=== PATIENT | male | born 1960 | race Two or more races ===

== ENCOUNTER → 2016-12-08 | Outpatient (CLI) | payer OTHER, MEDICARE ==
[~2016-12-08] MED LIST: AMLO1CAP12 PO; ASPI-482 PO; FENO160T PO; GLIM4TAB2 PO; HYDR-2762 PO; METF10002 PO; OMEP20TA PO; PRAV40TA2 PO; REGADENOSON 0.4 MG/5 ML DISP.SYRIN. IV ONE
--- NOTE | 2016-12-08 13:07 | RAD ---
APPROVED REPORT Test Type: Pharmacological Stress Nurse/Tech: Marylu Ibrahim R.N. Test Indications: chest pain, pre op clearance Cardiac History: htn,dm, cath in 2003-no intervention Medications: see ehr Medical History: see ehr Resting ECG: sb Resting Heart Rate: 60 bpm Resting Blood Pressure: 137/65mmHg Pretest Chest Pain: No chest pain Nurse/Tech Notes lungs cta, heart tones regular, good radial pulse Consent: The procedure was explained to the patient in lay terms. Informed consent was witnessed. Yasmany eout was entered into [employer]. History and Stress Test performed by Marylu Ibrahim R.N. Pharm. Details Pharmacologic stress testing was performed using 0.4mg per 5ml of regadenoson given intravenously ove r 7-10 seconds. Stress Symptoms chest pain during recovery 30 secs in to recovery 3/10, pain resolved in minute 4-0/10, described rosalba n as pressure Chest pain typical of angina occurred (Severity , min duration). POST EXERCISE Reason for Termination: Infusion complete Target HR: No Max HR: 101 bpm Max Blood Pressure: 147/67mmHg Chest Pain: Yes. see above Arrhythmia: No. INTERPRETATION Stress EKG Conclusion: The resting EKG showed a sinus rhythm and nonspecific ST segment changes. The stress EKG showed T-wave inversion inferiorly and in leads V3 through V6. Mildly abnormal baseline EKG with EKG changes with exertion that are suggestive of ischemia. Imaging Protocol IMAGE PROTOCOL: Rest Tc-99m/stress Tc-99m 1 day Rest: Stress: Viability: Radiopharm.Tc99m [id number] Sestamibi Dose10.1mCi 33mCi Duration 15min. 10min. Img Date 12/08/2016 12/08/2016 Inj-Img [id number]. 60min. Rest Admin Site:IV - Right AntecubitalAdministrator:RT Santos (R)(N) Stress Admin Site: IV - Right AntecubitalAdministrator: JUAN High STRESS DATA End Diast. Vol.150.0mlAv. Heart Rate72.0bpm End Syst. Vol.41.0mlCO Index BSA0.0L/min Myocardial Xusp537.0gEject. Cnbuhmqn36.0% Stress Rates Pk. Fill Rate3.18EDV/secLVtime Pk. Fill 124.66msec Pk. Empty Rate3.87ESV/secLVtime Pk. Ujggi480.25msec 10/14 Pk. Fill2.25EDV/sec Stress Scores Regional WT0.00Summed WT8.00 Regional WM0.00Summed WM1.00 LV Perfusion The stress scans showed mild inferior wall setting. The rest scan showed no significant defects. Borderline nuclear images suggestive but not diagnostic of inferior wall reversible ischemia. Wall Motion Normal left ventricular systolic function with an ejection fraction of greater than 70%. TID of 1.11. LV Perf. Quant 17 Seg. SSS1.00 17 Seg. SRS0.00 17 Seg. SDS1.00 Stress Defect Extent (% LAD)0.00Rest Defect Extent (% LAD)0.00Rev. Defect Extent (% LAD)0.00 Stress Defect Extent (% LCX) 0.00Rest Defect Extent (% LCX)0.00Rev. Defect Extent (% LCX)0.00 Stress Defect Extent (% RCA)0.00Rest Defect Extent (% RCA)0.00Rev. Defect Extent (% RCA)0.00 Stress Defect Extent (% ELMER)0.00Rest Defect Extent (% ELMER)0.00Rev. Defect Extent (% ELMER)0.00 Conclusion 1. Chest discomfort post infusion. 2. EKG changes suggestive but not diagnostic of ischemia. 3. Nuclear imaging is suggestive of an inferior wall reversible defect. 4. Normal left ventricular systolic function with an ejection fraction of greater than 70%. 5. Moderate risk Lexiscan nuclear stress test.
== END | disposition home or self-care (01) ==
LOC: NM 07:59
PROVIDERS: ATTEND Internal Medicine
DX: I25.119 Atherosclerotic heart disease of native coronary artery with unspecified angina pectoris (principal); R07.9 Chest pain, unspecified; Z82.49 Family history of ischemic heart disease and other diseases of the circulatory system; I10 Essential (primary) hypertension; E11.9 Type 2 diabetes mellitus without complications
CPT/HCPCS: 78452; 93017; 96374; 96375; 96376; A9500; J2785

== ENCOUNTER 2017-01-08 08:44 | Observation (INO) | payer BC, MEDICARE ==
[2017-01-08] VITALS (13 sets, daily range): BP systolic 120–147; BP diastolic 57–76
[~2017-01-08] VITALS: Ht 175.3 cm; Wt 99.8 kg
[~2017-01-08 08:44] MED LIST changes: +METF-620 PO; -METF10002 PO; -OMEP20TA PO; +OMEP20TA8 PO; -REGADENOSON 0.4 MG/5 ML DISP.SYRIN. IV ONE
[2017-01-08 09:30] LABS: HEMATOCRIT 34.6 % (39.0-53.0); HEMOGLOBIN 10.9 g/dL (13.0-17.5); RED BLOOD COUNT 4.68 x10^6/uL (4.30-5.70); WHITE BLOOD COUNT 5.1 x10^3/uL (4.0-11.0)
[2017-01-08 09:33] LABS: CALCIUM 8.8 mg/dL (8.5-10.1); CREATININE 0.8 mg/dL (0.7-1.3); POTASSIUM 4.1 mmol/L (3.5-5.1)
[2017-01-08 09:41] LABS: PROTHROMBIN TIME PATIENT 12.4 SEC (11.7-14.0)
[2017-01-08] MEDS ORDERED: GABA-586 PO (10:02)
[2017-01-08] MEDS ORDERED: ASPIRIN 325 MG TABLET PO ONE (10:15)
[2017-01-08] MEDS ORDERED: IOHEXOL 300 MG/ML 100ML VIAL. ONE (12:02)
[2017-01-08] MEDS ORDERED: LIDOCAINE 2% 20 ML VIAL. ONE (12:03)
[2017-01-08] MEDS ORDERED: MIDAZOLAM HCL/PF 2 MG/2 ML VIAL. ONE ×2 (12:27→12:34)
[2017-01-08] MEDS ORDERED: fentaNYL PF VIAL 100 MCG/2 ML VIAL ONE (12:27)
[2017-01-08] MEDS ORDERED: VERAPAMIL 5 MG/2 ML VIAL. ONE (12:27)
[2017-01-08] MEDS ORDERED: HEPARIN for IV BOLUS 10,000 UNIT/10 ML VIAL. ONE (12:27)
[2017-01-08] MEDS ORDERED: NITROGLYCERIN 200 MCG/2 ML SYRINGE FOR CATH/VASC LAB. ONE ×2 (12:27→13:53)
[2017-01-08] MEDS ORDERED: BIVALIRUDIN 250 MG VIAL. IV ONE ×2 (12:37→12:41)
[2017-01-08] MEDS ORDERED: VERAPAMIL 5 MG/2 ML VIAL. IART ONE (12:45)
[2017-01-08] MEDS ORDERED: MIDAZOLAM HCL/PF 2 MG/2 ML VIAL. IV ONE (12:45)
[2017-01-08] MEDS ORDERED: LIDOCAINE 2% 20 ML VIAL. IJ ONE (12:45)
[2017-01-08] MEDS ORDERED: IOHEXOL 300 MG/ML 100ML VIAL. IART ONE (12:45)
[2017-01-08] MEDS ORDERED: HEPARIN for IV BOLUS 10,000 UNIT/10 ML VIAL. IART ONE (12:45)
[2017-01-08] MEDS ORDERED: fentaNYL PF VIAL 100 MCG/2 ML VIAL IV ONE (12:45)
[2017-01-08] MEDS ORDERED: NITROGLYCERIN 200 MCG/2 ML SYRINGE FOR CATH/VASC LAB. IART ONE (12:45)
[2017-01-08] MEDS ORDERED: CANGRELOR TETRASODIUM 50 MG VIAL. IV ONE (12:46)
[2017-01-08] MEDS ORDERED: PHENYLEPHRINE in 0.9% NACL PF 1 MG/10 ML DISP.SYRIN. IV ONE (12:47)
[2017-01-08] MEDS ORDERED: ATROPINE 0.5 MG/5 ML DISP.SYRIN. ONE (12:47)
[2017-01-08] MEDS ORDERED: CANGRELOR TETRASODIUM 50 MG in IV NORMAL SALINE 250ML 250 ML IV PRN (12:55)
[2017-01-08] MEDS ORDERED: NITROGLYCERIN 200 MCG/2 ML SYRINGE FOR CATH/VASC LAB. ICAR ONE (13:00)
[2017-01-08] MEDS ORDERED: CONTRAST GIVEN MC PRN (13:00)
[2017-01-08] MEDS ORDERED: TICAGRELOR 90 MG TABLET. ONE (13:04)
[2017-01-08] MEDS ORDERED: TICAGRELOR 90 MG TABLET. PO ONE (13:15)
[2017-01-08] MEDS ORDERED: AMLO10TA2 PO (15:14)
[2017-01-08] MEDS ORDERED: BENA20TA2 PO (15:14)
[2017-01-08] MEDS ORDERED: OMEP20CA9 PO (15:15)
[2017-01-08] MEDS ORDERED: DEXTROSE 50% 25 GM / 50ML DISP.SYRIN. IV PRN (16:15)
[2017-01-08] MEDS ORDERED: oxyCODONE/APAP 5/325 1 TAB TABLET PO PRN (16:15)
[2017-01-08] MEDS: INSULIN ASPART 300 UNITS/3 ML INSULN.PEN SQ SCH (17:00)
--- NOTE | 2017-01-08 18:14 | CARD ---
APPROVED REPORT Procedure(s) performed: Right transradial approach Left Heart Catheterization PTCA with Stenting - RCA PTCA with Stenting - LAD iFR of the Lcx. HISTORY The patient is a 57 year-old male with a history of : diabetes mellitus with oral treatment, hyperten efe, family history of premature CAD. INDICATION The indication(s) include : positive stress test, unstable angina . CASE TECHNIQUE During this case, Fluoroscopy and low osmolar contrast were used for imaging. PROCEDURE NARRATIVE The patient was brought electively to the cardiac catheterization lab. A timeout was performed confi rming the patient's name, date of , procedure, and site of procedure. All necessary personnel w ere wearing the appropriate protective equipment and radiation monitor devices. After explaining the risks and benefits of the procedure and alternatives, informed consent was obtained. (See nursing no marleni for medications administered). The right wrist was sterilely prepped and draped in the usual fas hion. The right wrist was infiltrated with 1 mL of 2% lidocaine for subcutaneous anesthesia. A 6 Fr ench [employer] glide sheath was inserted into the right radial artery without difficulty. Right and lef t coronary angiography was performed using a 6Fr TIG 4.0 catheter. HEMODYNAMICS: LVEDP 20 mm Hg No gradient on LV to aortic pullback. LEFT VENTRICULOGRAM: EF 55% Anterobasal: Normal. Anterolateral: Normal Apical: Akinetic Diaphragmatic: Normal Posterobasal: Normal CORONARY ANGIOGRAPHY: LM is a large caliber vessel with normal angiographic appearance. LAD is a large caliber vessel with a distal/apical 80% stenosis. Ramus is a moderate caliber vessel with normal angiographic apeparance. LCx is a moderate caliber co-dominant vessel with a proximal to mid 40-50% stenosis. OM1 is a moderate caliber vessel with normal angiographic appearance. LPL1 is a moderate caliber vessel with normal angiographic appearance. RCA is a large caliber dominant vessel with a long mid to distal 90% stenosis. RPDA and RPL are moderate caliber vessels with normal angiographic appearance. INTERVENTIONAL TECHNIQUE: Bivalirudin and cangrelor was used for anticoagulation. Through a 6 [place] JR4 guide catheter a 0.014 inch [employer] run-through wire was used to cross the proximal and distal RCA lesions. Next, balloon an gioplasty was performed with a 3.0 x 20 mm balloon at 14 jessica. The lesion was then stented with a 3.5 x 38 mm drug-eluting stent (Xience) and then postdilated with a 4.0 x 12 mm noncompliant balloon. Pos t-PCI angiography revealed excellent stent expansion and LILI 3 flow without any proximal guide or di stal wire-related complications. Attention was then turned to the distal LAD lesion. A 6 [place] EBU 3.5 guide catheter was used to eng age the left main and the run-through wire was then placed in the distal LAD. Next, balloon angioplas ty was performed with a 2.5 x 12 mm balloon and this was subsequently stented with a 2.75 x 15 mm raffaele g-eluting stent.(Xience). Finally, a IFR wire was used to evaluate the significance of the circumflex stenosis and this was normal at 0.97. Left ventricular end diastolic pressure was obtained with a pigtail catheter and pullback was perfor med after left ventriculography. All catheter exchanges and advancements were performed over a guide wire. At case completion the right radial sheath was removed and a [employer] radial band was applied wi th 15 ml of air. The patient tolerated the procedure well and there were no immediate complications. The patient was given Ticagrelor at case completion. Conclusion 1. Three vessel coronary artery disease. 2. Normal LV systolic function. EF 65% 3. Successful PCI of the RCA with implantation of a 3.5/38 mm Xience LORENZO, post-dilated with a 4.0 mm stent. 4. Successful PCI of the distal LAD with implantation of a 2.75/15 mm LORENZO. 5. Negative iFR of the LCx stenosis. Recommendations ASA 81mg daily indefinitely Ticagrelor 90mg bid indefinitely if tolerated. High dose statin therapy Cardiac rehab.
[2017-01-08] MEDS: LISINOPRIL 20 MG TABLET PO SCH (18:16)
[2017-01-08] MEDS: amLODIPine BESYLATE 10 MG TABLET PO SCH (18:17)
[2017-01-08] MEDS ORDERED: ATORVASTATIN CALCIUM 40 MG TABLET. PO SCH (21:00)
[2017-01-08] MEDS: TICAGRELOR 90 MG TABLET. PO SCH (22:01)
[2017-01-09 03:00] VITALS: BP 119/61
[2017-01-09 06:38] LABS: CHOLESTEROL/HDL RATIO 4.6
[2017-01-09 07:00] VITALS: BP 119/61
[2017-01-09 08:00] VITALS: BP 126/62
[2017-01-09] MEDS ORDERED: ASPIRIN ENTERIC COATED 81 MG TABLET.DR. PO SCH (08:00)
[2017-01-09] MEDS: INSULIN ASPART 300 UNITS/3 ML INSULN.PEN SQ SCH (08:00)
[2017-01-09 09:50] VITALS: BP 126/62
[2017-01-09] MEDS: TICAGRELOR 90 MG TABLET. PO SCH (10:15)
[2017-01-09] MEDS: LISINOPRIL 20 MG TABLET PO SCH (10:15)
[2017-01-09] MEDS: amLODIPine BESYLATE 10 MG TABLET PO SCH (10:17)
[2017-01-09 11:00] VITALS: BP 108/51
[2017-01-09] MEDS ORDERED: TICA90TA PO (11:11)
[2017-01-09] MEDS ORDERED: ATOR40TA59 PO (11:11)
--- NOTE | 2017-01-09 12:04 | PDOC3 ---
[employer] M PRINCIPAL EMBEDDED SOFTWARE ENGINEER 01/09/17 1204: Discharge Summary Visit Information Date of Admission: Jan 08, 2017 Date of Discharge: Jan 09, 2017 Admitting Diagnosis Comment: 1. abnormal MPI 2. unstable angina 3. DM, II 4. HTN, benign essential 5. dyslipidemia Final Diagnosis Problems Medical Problems: (1) CAD (coronary artery disease), [place] coronary artery Status: Acute (2) DM circ dis type II Status: Acute 3. HTN, benign essential 4. dyslipidemia Brief Hospital Course Allergies Allergies Coded Allergies Type Severity Reaction Last Updated Verified Penicillins Allergy Intermediate RASH 06/15/14 Yes adhesive tape Allergy Intermediate 01/09/17 Yes clarithromycin Allergy Intermediate HIVES 06/15/14 Yes Vital Signs Vital Signs Date Time Temp Pulse Resp B/P Pulse Ox O2 Delivery O2 Flow Rate FiO2 01/09/17 11:00 98.3 67 18 108/51 Room Air 98.3 01/09/17 09:50 98 Lab Results Laboratory Tests Test 01/08/17 09:15 01/08/17 16:54 01/08/17 20:40 01/09/17 05:00 White Blood Count 5.1x10^3/uL (4.0-11.0) Red Blood Count 4.68x10^6/uL (4.30-5.70) Hemoglobin 10.9g/dL (13.0-17.5) Hematocrit 34.6% (39.0-53.0) Mean Corpuscular Volume 74fL (79-100) Mean Corpuscular Hemoglobin 23pg (25-35) Mean Corpuscular Hemoglobin Concent 32g/dL (31-37) Red Cell Distribution Width 17.0% (11.5-14.5) Platelet Count 178x10^3/uL (140-400) Prothrombin Time 12.4SEC (11.7-14.0) Prothromb Time International Ratio 1.0 (0.8-1.1) Activated Partial Thromboplast Time 28SEC (24-38) Sodium Level 145mmol/L (136-145) Potassium Level 4.1mmol/L (3.5-5.1) Chloride Level 106mmol/L (98-107) Carbon Dioxide Level 29mmol/L (21-32) Anion Gap 10 (6-14) Blood Urea Nitrogen 16mg/dL (8-26) Creatinine 0.8mg/dL (0.7-1.3) Estimated GFR (Cockcroft-Gault) 100.0 Glucose Level 119mg/dL (70-99) Calcium Level 8.8mg/dL (8.5-10.1) Glucose (Fingerstick) 152mg/dL (70-99) 102mg/dL (70-99) Triglycerides Level 122mg/dL (0-150) Cholesterol Level 142mg/dL (0-200) LDL Cholesterol, Calculated 87mg/dL (0-100) VLDL Cholesterol, Calculated 24mg/dL (0-40) HDL Cholesterol 31mg/dL (40-60) Cholesterol/HDL Ratio 4.6 Test 01/09/17 08:17 Glucose (Fingerstick) 125mg/dL (70-99) Laboratory Tests Test 01/08/17 16:54 01/08/17 20:40 01/09/17 05:00 01/09/17 08:17 Glucose (Fingerstick) 152mg/dL (70-99) 102mg/dL (70-99) 125mg/dL (70-99) Triglycerides Level 122mg/dL (0-150) Cholesterol Level 142mg/dL (0-200) LDL Cholesterol, Calculated 87mg/dL (0-100) VLDL Cholesterol, Calculated 24mg/dL (0-40) HDL Cholesterol 31mg/dL (40-60) Cholesterol/HDL Ratio 4.6 Brief Hospital Course Mr. Alfonso is a 57 old with an abnormal MPI demonstrating a reversible inferior perfusion defect ordered by his PCP and associated with intermittent sharp chest pain. Cardiac catheterization was recommended for further evaluation. He underwent catheter[facility] on 01/08/[facility] of a 3.5 X 38 mm Xience LORENZO to the RCA and 2.75 X 15 mm Xience LORENZO to the distal LAD with a negative FFR to the left circumflex. Monitored overnight without cardiac dysrhythmias. No further symptoms. Right radial site without erythema , edema or ecchymosis. Radial pulse 2+. Discharge on DAPT with Brilinta ( ticagrelor). Discharge Information Condition at Discharge: Stable Follow Up: Weeks (with cardiology as scheduled; PCP iin 3 - 5 days) Disposition/Orders: D/C to Home Scheduled Amlodipine Besylate (Amlodipine Besylate) 10 MG PO DAILY (Reported) Aspirin (Aspir 81) 2 TAB PO DAILY (Reported) Atorvastatin Calcium (Atorvastatin Calcium) 40 MG PO QHS Benazepril Hcl (Benazepril Hcl) 1 TAB PO DAILY (Reported) Gabapentin (Gabapentin) 300 MG PO BID (Reported) Metformin Hcl (Metformin Hcl) 1 TAB PO BID (Reported) Omeprazole (Omeprazole) 1 CAP PO QPM (Reported) Ticagrelor (Brilinta) 90 MG PO BID Discontinued Medications Amlodipine Besylate/Benazepril (Amlodipine-Benazepril 10-20 Mg) 1 CAP PO DAILY ( Reported) Fenofibrate (Fenofibrate) 1 TAB PO DAILY (Reported) Discontinued Reason: PCP change Hydrocodone Bit/Acetaminophen (Hydrocodone-Apap 7.5-325 ) 1 TAB PO QID ( Reported) Omeprazole (Omeprazole) 1 TAB PO DAILY (Reported) Pravastatin Sodium (Pravastatin Sodium) 1 TAB PO QHS (Reported) Discontinued Reason: PCP DC Patient Instructions Patient Instructions GENERAL INSTRUCTIONS: 1. Your dressing should be removed prior to leaving the hospital. 2. It is OK to shower the day after your procedure. 3. If you received stents, be sure to carry your stent information card with you in your wallet/purse at all times. 4. Call the office immediately at [phone] if you notice any fever or if there is redness, worsening tenderness/pain, increased bruising, or drainage from the puncture site. 5. Should you have bleeding from the site, lie down immediately & put pressure on the site. The pressure should be hard enough to stop the bleeding. Have the nearest person call 911. DO NOT try to drive to the ER with active bleeding. 6. If you notice a change in color, coolness to touch, or loss of feeling in the affected extremity, come to the emergency room. Please have someone drive you or call 911 if no one is available. DO NOT drive yourself. 7. If you normally take glucophage (metformin), please do not take this medicine for 48 hours following your procedure. 8. DO NOT STOP TAKING YOUR PLAVIX OR ASPIRIN UNLESS IT IS CLEARED BY A SADDLE STITCH OPERATOR OF YOUR PRIMARY SCHOOL PRINCIPAL AT OUR OFFICE. 9. QUIT SMOKING: the [place] [employer], [place], & [place] have cessation resources available on their websites 10. Please have someone available to drive you home from the hospital as you may be limited by sedation medications given during the procedure. Radial Artery (Wrist) access: 1. No pushing, pulling, lifting, typing, or anything that requires repetitive use/movement of the affected wrist for 3 days following your procedure. 2. OK to drive the day following your procedure. (This is because of effects of sedating medications.) Call the office at [phone] for any questions or concerns. HUA HOWARD MD 01/10/17 0257: Discharge Summary Brief Hospital Course Brief Hospital Course Late entry for 01/09/2017. Pt. seen and examined. Agree with above PSYCHIATRY INSTRUCTOR note. No acute events overnight. No CP R radial site is C/D/I Meds reviewed Will f/u in 4-6 weeks. Discharge Information Scheduled Amlodipine Besylate (Amlodipine Besylate) 10 MG PO DAILY (Reported) Aspirin (Aspir 81) 2 TAB PO DAILY (Reported) Atorvastatin Calcium (Atorvastatin Calcium) 40 MG PO QHS Benazepril Hcl (Benazepril Hcl) 1 TAB PO DAILY (Reported) Gabapentin (Gabapentin) 300 MG PO BID (Reported) Metformin Hcl (Metformin Hcl) 1 TAB PO BID (Reported) Omeprazole (Omeprazole) 1 CAP PO QPM (Reported) Ticagrelor (Brilinta) 90 MG PO BID Discontinued Medications Amlodipine Besylate/Benazepril (Amlodipine-Benazepril 10-20 Mg) 1 CAP PO DAILY ( Reported) Fenofibrate (Fenofibrate) 1 TAB PO DAILY (Reported) Discontinued Reason: PCP change Hydrocodone Bit/Acetaminophen (Hydrocodone-Apap 7.5-325 ) 1 TAB PO QID ( Reported) Omeprazole (Omeprazole) 1 TAB PO DAILY (Reported) Pravastatin Sodium (Pravastatin Sodium) 1 TAB PO QHS (Reported) Discontinued Reason: PCP [facility] PRINCIPAL EMBEDDED SOFTWARE ENGINEER Jan 09, 2017 12:04 HUA HOWARD MD Jan 10, 2017 02:57
== END 2017-01-09 13:00 | disposition home or self-care (01) ==
LOC: CCL 08:44 → CVICU 13:34 → INTOOBSV 13:34
PROVIDERS: ADMIT Internal Medicine Cardiovascular Disease; ATTEND Internal Medicine Cardiovascular Disease
DX: I25.119 Atherosclerotic heart disease of native coronary artery with unspecified angina pectoris (principal); E78.5 Hyperlipidemia, unspecified; I10 Essential (primary) hypertension; E11.9 Type 2 diabetes mellitus without complications; R94.39 Abnormal result of other cardiovascular function study; Z82.49 Family history of ischemic heart disease and other diseases of the circulatory system
CPT/HCPCS: 36415; 80048; 80061; 82962; 85027; 85610; 85730; 93458; 93571; 96365; 96372; C1725; C1769; C1874; C1887; C1892; C9460; C9600; G0378; G0379; J0583; J1815; J2250; J3010; J3490; J7050; Q9967; 92928; J7030

== ENCOUNTER 2017-12-03 11:18 | Emergency (ER) | payer BC ==
[2017-12-03 12:38] LABS: BILIRUBIN,URINE NEGATIVE (NEG); CLARITY,URINE CLOUDY; COLOR,URINE YELLOW; GLUCOSE,URINE 500 mg/dL (NEG); NITRITE,URINE NEGATIVE (NEG); PH,URINE 6.5; PROTEIN,URINE NEGATIVE (NEG-TRACE); UROBILINOGEN,URINE 0.2 mg/dL (0.2 mg/dL)
[2017-12-03 12:46] LABS: SQUAMOUS EPITHELIAL CELL,UR OCC /LPF
[2017-12-03 12:48] LABS: BACTERIA,URINE FEW /HPF (0-FEW); RBC,URINE OCC /HPF (0-2)
[2017-12-03 13:02] LABS: ADD MAN DIFF? NO
[2017-12-03 13:06] LABS: BASO % 1 % (0-3); EOS # 0.1 x10^3/uL (0.0-0.7); EOS % 2 % (0-3); HEMOGLOBIN 12.7 g/dL (13.0-17.5); LYMPH # 1.3 x10^3/uL (1.0-4.8); LYMPH % 28 % (24-48); MEAN CORPUSCULAR HEMOGLOBIN 27 pg (25-35); MEAN CORPUSCULAR HGB CONC 33 g/dL (31-37); MEAN CORPUSCULAR VOLUME 81 fL (79-100); MONO # 0.5 x10^3/uL (0.0-1.1); MONO % 10 % (0-9); NEUT # 2.6 x10^3uL (1.8-7.7); NEUT % 58 % (31-73); PLATELET COUNT 133 x10^3/uL (140-400); RED BLOOD COUNT 4.68 x10^6/uL (4.30-5.70); RED CELL DISTRIBUTION WIDTH 14.1 % (11.5-14.5); WHITE BLOOD COUNT 4.5 x10^3/uL (4.0-11.0)
[2017-12-03 13:15] LABS: ANION GAP 8 (6-14); BLOOD UREA NITROGEN 14 mg/dL (8-26); BUN/CREATININE RATIO 18 (6-20); CALCIUM 9.1 mg/dL (8.5-10.1); CARBON DIOXIDE 29 mmol/L (21-32); CHLORIDE 100 mmol/L (98-107); CREATININE 0.8 mg/dL (0.7-1.3); GLUCOSE 184 mg/dL (70-99); POTASSIUM 4.4 mmol/L (3.5-5.1); SODIUM 137 mmol/L (136-145)
[2017-12-03 13:21] LABS: ALBUMIN 3.9 g/dL (3.4-5.0); ALBUMIN/GLOBULIN RATIO 1.1 (1.0-1.7); ALK PHOS 65 U/L (46-116); ALT (SGPT) 66 U/L (16-63); AST (SGOT) 56 U/L (15-37); LIPASE 146 U/L (73-393); TOTAL BILIRUBIN 0.5 mg/dL (0.2-1.0); TOTAL PROTEIN 7.6 g/dL (6.4-8.2)
[2017-12-03 13:42] LABS: TROPONINI < 0.017 ng/mL (0.000-0.055)
[2017-12-03] MEDS: GADOBUTROL 10 MMOL/10 ML VIAL IV ×2 (16:05)
== END 2017-12-03 18:13 | disposition home or self-care (01) ==
LOC: ER 11:18
DX: M51.26 Other intervertebral disc displacement, lumbar region (principal); B02.9 Zoster without complications; R94.31 Abnormal electrocardiogram [ECG] [EKG]; E11.9 Type 2 diabetes mellitus without complications; I10 Essential (primary) hypertension; I25.10 Atherosclerotic heart disease of native coronary artery without angina pectoris; Z95.5 Presence of coronary angioplasty implant and graft; F43.10 Post-traumatic stress disorder, unspecified; Z79.02 Long term (current) use of antithrombotics/antiplatelets; Z88.0 Allergy status to penicillin; Z88.1 Allergy status to other antibiotic agents; Z88.8 Allergy status to other drugs, medicaments and biological substances
CPT/HCPCS: 36415; 70450; 72157; 72158; 80053; 81001; 83690; 84484; 85025; 93005; 96374; 99285-25; A9585

== ENCOUNTER → 2018-05-26 | Outpatient (CLI) | payer BC ==
[2017-12-03 16:54] VITALS: BP 136/75
[~2018-05-26] MED LIST changes: +AMLO10TA2 PO; +ATOR40TA59 PO; +BENA20TA4 PO; +GABA-586 PO; -METF-620 PO; +METF10003 PO; +OMEP20CA9 PO; +TICA90TA PO; +VALA1000 PO
--- NOTE | 2018-05-26 13:49 | RAD ---
MR#: [id number] Date of Study: 05/26/2018 Ordering Physician: HUA HOWARD, Referring Physician: STORMY NIEVES Tech: Porfirio Walker RT (R) (N) APPROVED REPORT Test Type: Exercise Stress Nurse/Tech: Jesica Hughes R.N. Test Indications: CAD, Stents Cardiac History: Family history, Hypertension, Diabetes, CAD, Stents Medications: See Electronic Medical Record Medical History: See Electronic Medical Record Resting ECG: NSR Resting Heart Rate: 61 bpm Resting Blood Pressure: 133/68mmHg Pretest Chest Pain: No chest pain Nurse/Tech Notes S1S2, lungs sound clear Consent: The procedure was explained to the patient in lay terms. Informed consent was witnessed. Yasmany eout was entered into [employer]. History and Stress Test performed by Jesica Hughes R.N. Stress Symptoms No chest pain or symptoms. POST EXERCISE Reason for Termination: Reached target heart rate Target HR: 138 Max HR: 149 bpm Exercise duration: 12 min min:sec, 4 Stage Max Blood Pressure: 171/73mmHg Blood Pressure response to exercise: Normal blood pressure response during stress. Chest Pain: No. Arrhythmia: No. ST Change: Yes. ST depression in V leads and II INTERPRETATION Stress EKG Conclusion: Baseline EKG showed sinus rhythm with lateral T wave inversions. Non diagnost ic changes at peak stress. No arrhythmias. Imaging Protocol IMAGE PROTOCOL: Rest Tc-99m/stress Tc-99m 1 day Rest: Stress: Viability: Radiopharm.Tc99m [id number] Sestamibi Dose12.4mCi 34.5mCi Duration 15min. 12min. Img Date 05/26/2018 05/26/2018 Inj-Img [id number]. 60min. Rest Admin Site:IV - Right AntecubitalAdministrator:JUAN High Stress Admin Site: IV - Right AntecubitalAdministrator: JUAN High STRESS DATA End Diast. Vol.114.0mlAv. Heart Rate73.0bpm End Syst. Vol.37.0mlCO Index BSA0.0L/min Myocardial Aavg457.0gEject. Fdjslcax37.0% Stress Rates Pk. Fill Rate2.97EDV/secLVtime Pk. Fill 154.57msec Pk. Empty Rate4.13ESV/secLVtime Pk. Ufvzf774.78msec 1/3 Pk. Fill1.69EDV/sec Stress Scores Regional WT0.00Summed WT5.00 Regional WM0.00Summed WM2.00 Study quality was good. Left Ventricular size was Normal at Rest and Stress. Lung uptake was Normal. Left Ventricular ejection fraction is 68%. The rest and stress images show normal perfusion, normal contraction and thickening. LV Perf. Quant 17 Seg. SSS1.00 17 Seg. SRS1.00 17 Seg. SDS1.00 Stress Defect Extent (% LAD)0.00Rest Defect Extent (% LAD)0.00Rev. Defect Extent (% LAD)0.00 Stress Defect Extent (% LCX) 0.00Rest Defect Extent (% LCX)0.00Rev. Defect Extent (% LCX)0.00 Stress Defect Extent (% RCA)0.00Rest Defect Extent (% RCA)0.00Rev. Defect Extent (% RCA)0.00 Stress Defect Extent (% ELMER)0.00Rest Defect Extent (% ELMER)0.00Rev. Defect Extent (% ELMER)0.00 Conclusion 1. Treadmill cardioisotope stress test did not show any evidence of ischemia or infarct. 2. Normal left ventricular systolic function with ejection fraction calculated at 68%. 3. Low risk for cardiac events. Signed by : Issac Moore, Electronically Approved : 05/26/2018 13:47:52
== END | disposition home or self-care (01) ==
LOC: NM 08:10
PROVIDERS: ATTEND Internal Medicine Cardiovascular Disease
DX: I25.10 Atherosclerotic heart disease of native coronary artery without angina pectoris (principal); I10 Essential (primary) hypertension; E11.9 Type 2 diabetes mellitus without complications; E78.5 Hyperlipidemia, unspecified; Z95.5 Presence of coronary angioplasty implant and graft
CPT/HCPCS: 78452; 93017; 96374; 96376; A9500

== ENCOUNTER 2018-11-24 14:50 | Emergency (ER) | payer BC ==
[~2018-11-24] VITALS: Ht 175.3 cm; Wt 102.1 kg
[~2018-11-24 14:50] MED LIST changes: -AMLO10TA2 PO; +AMLO10TA8 PO; -GABA-586 PO; +GABA300C18 PO; -HYDR-2762 PO; +HYDR-2765 PO; -METF10003 PO; +METF10007 PO; +OMEP20CA10 PO; -OMEP20CA9 PO
[2018-11-24] MEDS ORDERED: fentaNYL PF VIAL 100 MCG/2 ML VIAL IV ONE ×2 (15:30→18:15)
[2018-11-24] MEDS ORDERED: ONDANSETRON PF 4 MG/2 ML VIAL. IV ONE (15:30)
[2018-11-24] MEDS ORDERED: IV NORMAL SALINE 1000ML BAG 1,000 ML IV ONE (15:30)
--- NOTE | 2018-11-24 15:34 | PHYS DOC ---
Past Medical History Past Medical History: CAD, Depression, Diabetes-Type II, High Cholesterol, Hypertension, Other Additional Past Medical Histor: PTSD, DDD, CHRONIC BACK PAIN (ANTWON JOSEPH APRN) Past Surgical History: Other Additional Past Surgical Histo: cardiac stent, cardiac cath, back surgery, R rotator cuff (ANTWON JOSEPH APRN) Alcohol Use: Rarely Additional Information: SOCIALLY Drug Use: None (ANTWON JOSEPH APRN) Adult General Chief Complaint Chief Complaint: ABDOMINAL PAIN HPI HPI Patient is a 58 year old who presents to the emergency Department today with complaints of right upper quadrant abdominal pain and nausea for the last 3 days. Patient states he has felt nauseated but he denies any vomiting or diarrhea. Patient also denies any fever, chest pain, back pain, or constipation. He reports his last bowel movement was this morning and it was normal he denies any blood in his stools. Patient states that his urine has been darker than usual however he denies any dysuria, hematuria, or increased urinary frequency. Patient currently rates his pain as 6-8 out of 10 on the pain scale he states that nothing helps to relieve or aggravate the pain. (ANTWON JOSEPH APRN) Review of Systems Review of Systems Constitutional: Denies fever or chills [] HENT: Denies nasal congestion or sore throat [] Respiratory: Denies cough or shortness of breath [] Cardiovascular: No additional information not addressed in HPI [] GI: Denies vomiting, bloody stools or diarrhea; see history of present illness [ ] : Denies dysuria or hematuria; see history of present illness [] Musculoskeletal: Denies back pain or joint pain [] Integument: Denies rash or skin lesions [] Neurologic: Denies headache, focal weakness or sensory changes [] Endocrine: Denies polyuria or polydipsia [] (ANTWON JOSEPH APRN) Current Medications Current Medications Current Medications Medications (Trade) Dose Ordered Sig/Nirav Start Time Stop Time Status Last Admin Dose Admin Fentanyl Citrate (Fentanyl 2ml Vial) 50 mcg 1X ONCE 11/24/18 18:15 11/24/18 18:16 DC 11/24/18 18:19 50 MCG Ondansetron HCl (Zofran) 4 mg 1X ONCE 11/24/18 15:30 11/24/18 15:31 DC 11/24/18 15:45 4 MG Sodium Chloride 1,000 ml @ 1,000 mls/hr 1X ONCE 11/24/18 15:30 11/24/18 16:29 DC 11/24/18 15:45 1,000 MLS/HR (MAREN MURRELL MD) Allergies Allergies Allergies Coded Allergies Type Severity Reaction Last Updated Verified Penicillins Allergy Intermediate RASH 06/15/14 Yes adhesive tape Allergy Intermediate 01/09/17 Yes clarithromycin Allergy Intermediate HIVES 06/15/14 Yes (MAREN MURRELL MD) Physical Exam Physical Exam Constitutional: Well developed, well nourished, no acute distress, non-toxic appearance. [] HENT: Normocephalic, atraumatic, bilateral external ears normal, oropharynx moist, no oral exudates, nose normal. [] Eyes: PERRLA, conjunctiva normal, no discharge. [] Neck: Normal range of motion, no tenderness, supple, no stridor. [] Cardiovascular:Heart rate regular rhythm, no murmur [] Lungs & Thorax: Bilateral breath sounds clear to auscultation [] Abdomen: Bowel sounds normal, soft, no tenderness, no masses, no pulsatile masses. [] Skin: Warm, dry, no erythema, no rash. [] Back: No CVA tenderness. [] Extremities: No cyanosis, no clubbing, ROM intact, no edema. [] Neurologic: Alert and oriented X 3, normal motor function, normal sensory function, no focal deficits noted. [] Psychologic: Affect normal, judgement normal, mood normal. [] (ANTWON JOSEPH APRN) Current Patient Data Vital Signs Vital Signs Date Time Temp Pulse Resp B/P (MAP) Pulse Ox O2 Delivery O2 Flow Rate FiO2 11/24/18 18:30 72 13 152/66 (94) 96 Room Air 11/24/18 14:57 98.4 98.4 (MAREN MURRELL MD) Lab Values Laboratory Tests Test 11/24/18 15:33 White Blood Count 6.3 x10^3/uL (4.0-11.0) Red Blood Count 4.91 x10^6/uL (4.30-5.70) Hemoglobin 12.9 g/dL (13.0-17.5) L Hematocrit 39.9 % (39.0-53.0) Mean Corpuscular Volume 81 fL (79-100) Mean Corpuscular Hemoglobin 26 pg (25-35) Mean Corpuscular Hemoglobin Concent 32 g/dL (31-37) Red Cell Distribution Width 14.7 % (11.5-14.5) H Platelet Count 128 x10^3/uL (140-400) L Neutrophils (%) (Auto) 58 % (31-73) Lymphocytes (%) (Auto) 32 % (24-48) Monocytes (%) (Auto) 8 % (0-9) Eosinophils (%) (Auto) 2 % (0-3) Basophils (%) (Auto) 1 % (0-3) Neutrophils # (Auto) 3.7 x10^3uL (1.8-7.7) Lymphocytes # (Auto) 2.0 x10^3/uL (1.0-4.8) Monocytes # (Auto) 0.5 x10^3/uL (0.0-1.1) Eosinophils # (Auto) 0.1 x10^3/uL (0.0-0.7) Basophils # (Auto) 0.0 x10^3/uL (0.0-0.2) Urine Color Yellow Urine Clarity Clear Urine pH 5.5 Urine Specific [place] >=1.030 Urine Protein Negative mg/dL (NEG-TRACE) Urine Glucose (UA) >=1000 mg/dL (NEG) Urine Ketones (Stick) Negative mg/dL (NEG) Urine Blood Negative (NEG) Urine Nitrite Negative (NEG) Urine Bilirubin Negative (NEG) Urine Urobilinogen Dipstick 0.2 mg/dL (0.2 mg/dL) Urine Leukocyte Esterase Negative (NEG) Urine RBC 0 /HPF (0-2) Urine WBC Occ /HPF (0-4) Urine Squamous Epithelial Cells None /LPF Urine Bacteria 0 /HPF (0-FEW) Sodium Level 139 mmol/L (136-145) Potassium Level 3.8 mmol/L (3.5-5.1) Chloride Level 102 mmol/L (98-107) Carbon Dioxide Level 27 mmol/L (21-32) Anion Gap 10 (6-14) Blood Urea Nitrogen 16 mg/dL (8-26) Creatinine 0.8 mg/dL (0.7-1.3) Estimated GFR (Cockcroft-Gault) 99.6 BUN/Creatinine Ratio 20 (6-20) Glucose Level 257 mg/dL (70-99) H Calcium Level 9.2 mg/dL (8.5-10.1) Total Bilirubin 0.4 mg/dL (0.2-1.0) Aspartate Amino Transferase (AST) 29 U/L (15-37) Alanine Aminotransferase (ALT) 41 U/L (16-63) Alkaline Phosphatase 71 U/L (46-116) Total Protein 7.7 g/dL (6.4-8.2) Albumin 4.0 g/dL (3.4-5.0) Albumin/Globulin Ratio 1.1 (1.0-1.7) Lipase 122 U/L (73-393) Laboratory Tests 11/24/18 15:33 Laboratory Tests 11/24/18 15:33 (MAREN MURRELL MD) Lab Values Laboratory Tests Test 11/24/18 15:33 White Blood Count 6.3 x10^3/uL (4.0-11.0) Red Blood Count 4.91 x10^6/uL (4.30-5.70) Hemoglobin 12.9 g/dL (13.0-17.5) L Hematocrit 39.9 % (39.0-53.0) Mean Corpuscular Volume 81 fL (79-100) Mean Corpuscular Hemoglobin 26 pg (25-35) Mean Corpuscular Hemoglobin Concent 32 g/dL (31-37) Red Cell Distribution Width 14.7 % (11.5-14.5) H Platelet Count 128 x10^3/uL (140-400) L Neutrophils (%) (Auto) 58 % (31-73) Lymphocytes (%) (Auto) 32 % (24-48) Monocytes (%) (Auto) 8 % (0-9) Eosinophils (%) (Auto) 2 % (0-3) Basophils (%) (Auto) 1 % (0-3) Neutrophils # (Auto) 3.7 x10^3uL (1.8-7.7) Lymphocytes # (Auto) 2.0 x10^3/uL (1.0-4.8) Monocytes # (Auto) 0.5 x10^3/uL (0.0-1.1) Eosinophils # (Auto) 0.1 x10^3/uL (0.0-0.7) Basophils # (Auto) 0.0 x10^3/uL (0.0-0.2) Urine Color Yellow Urine Clarity Clear Urine pH 5.5 Urine Specific [place] >=1.030 Urine Protein Negative mg/dL (NEG-TRACE) Urine Glucose (UA) >=1000 mg/dL (NEG) Urine Ketones (Stick) Negative mg/dL (NEG) Urine Blood Negative (NEG) Urine Nitrite Negative (NEG) Urine Bilirubin Negative (NEG) Urine Urobilinogen Dipstick 0.2 mg/dL (0.2 mg/dL) Urine Leukocyte Esterase Negative (NEG) Urine RBC 0 /HPF (0-2) Urine WBC Occ /HPF (0-4) Urine Squamous Epithelial Cells None /LPF Urine Bacteria 0 /HPF (0-FEW) Sodium Level 139 mmol/L (136-145) Potassium Level 3.8 mmol/L (3.5-5.1) Chloride Level 102 mmol/L (98-107) Carbon Dioxide Level 27 mmol/L (21-32) Anion Gap 10 (6-14) Blood Urea Nitrogen 16 mg/dL (8-26) Creatinine 0.8 mg/dL (0.7-1.3) Estimated GFR (Cockcroft-Gault) 99.6 BUN/Creatinine Ratio 20 (6-20) Glucose Level 257 mg/dL (70-99) H Calcium Level 9.2 mg/dL (8.5-10.1) Total Bilirubin 0.4 mg/dL (0.2-1.0) Aspartate Amino Transferase (AST) 29 U/L (15-37) Alanine Aminotransferase (ALT) 41 U/L (16-63) Alkaline Phosphatase 71 U/L (46-116) Total Protein 7.7 g/dL (6.4-8.2) Albumin 4.0 g/dL (3.4-5.0) Albumin/Globulin Ratio 1.1 (1.0-1.7) Lipase 122 U/L (73-393) Laboratory Tests 11/24/18 15:33 Laboratory Tests 11/24/18 15:33 (ANTWON JOSEPH APRN) EKG EKG [] (ANTWON JOSEPH APRN) Radiology/Procedures Radiology/Procedures PROCEDURE: ABDOMEN LTD Limited abdomen ultrasound study Clinical indications: Right upper quadrant abdominal pain for 3 days. FINDINGS: The pancreas is obscured by overlying bowel gas. No focal aneurysmal dilatation of the abdominal aorta is evident. There is diffuse attenuation of sound throughout the liver which may be seen with fatty infiltration of the liver. This decreases the sensitivity of sonography to detect focal hepatic lesions. No focal hepatic mass is seen otherwise. The liver measures 16.9 cm in length which is normal. No gallstones are seen within the gallbladder. Biliary sludge is seen within the gallbladder. No gallbladder wall thickening or gallbladder distention is evident. The extra hepatic bile duct measures 4.0 mm in caliber which is normal. The length of the right kidney is 13.1 cm. No hydronephrosis or renal mass or perinephric fluid collection is seen on this side. IMPRESSION: Biliary sludge within the gallbladder. Fatty infiltration of the liver.[] PROCEDURE: CHEST PA & LATERAL CHEST PA LATERAL History: right lower rib pain Comparison: None The heart size is not enlarged. No pneumothorax. No evidence of a pleural effusion. Note that the right lateral lung base is not entirely included. No consolidating infiltrate. Mild degenerative spurring of the spine. IMPRESSION: No evidence of consolidating infiltrate. (ANTWON JOSEPH BOX SORTER) Course & Med Decision Making Course & Med Decision Making Pertinent Labs and Imaging studies reviewed. (See chart for details) Dx: RUQ abd pain, nausea DDx: cholecystitis, gallstones, pneumonia, PE US of RUQ and CXR negative for any acute findings. Labs not concerning for acute infection or dehydration. Pt was given 1L NS, 4 mg of zofran and 2 doses of 50 mcg of Fentanyl IV, reports improvement in sx. Prescription written for zofran, clear liquid diet x24 hours then bland diet and advance as tolerated. Follow up with PCP if sx persist, return to ER if sx worsen. Patient verbalized an understanding of home care, medications, follow-up, and return to ED instructions and was in agreement with the plan of care. [] (ANTWON JOSEPH APRN) Course & Med Decision Making Staff Physician Addendum: I was working in the ER during the course of this patient's visit. I was available for consultation as needed, but I was not directly involved in the care of this patient. (MAREN MURRELL MD) Dragon Disclaimer Dragon Disclaimer This electronic medical record was generated, in whole or in part, using a voice recognition dictation system. (ANTWON JOSEPH APRN) Departure Departure Impression: Primary Impression: Right upper quadrant abdominal pain Additional Impressions: Nausea Hyperglycemia due to type 2 diabetes mellitus Disposition: HOME, SELF-CARE Condition: STABLE Referrals: VALERIE ANGEL (PCP) Patient Instructions: Abdominal Pain (Nonspecific), Clear Liquid Diet, Easy-to- Read, Nausea, Adult, [id number] Additional Instructions: Fill prescriptions and use them as directed. Recommend clear fluids for the next 24 hours. Then you may advance to bland foods such as bananas, rice, applesauce, and dry toast. Follow-up with your primary care doctor in the next 1 -2 days. Return to the emergency room if your symptoms worsen. Scripts Ondansetron (ONDANSETRON ODT) 4 Mg Tab.rapdis 1 TAB PO PRN Q6-8HRS PRN for NAUSEA, #16 TAB 0 Refills Prov: ANTWON JOSEPH APRN 11/24/18 Problem Qualifiers Additional Impressions: Hyperglycemia due to type 2 diabetes mellitus Diabetes mellitus terminologist insulin use: unspecified jail insulin use status Qualified Codes: E11.65 - Type 2 diabetes mellitus with hyperglycemia ANTWON JOSEPH APRN Nov 24, 2018 15:34 MAREN MURRELL MD Nov 25, 2018 11:36
[2018-11-24 15:45] LABS: BASO % 1 % (0-3); EOS # 0.1 x10^3/uL (0.0-0.7); EOS % 2 % (0-3); HEMATOCRIT 39.9 % (39.0-53.0); HEMOGLOBIN 12.9 g/dL (13.0-17.5); LYMPH % 32 % (24-48); MEAN CORPUSCULAR HEMOGLOBIN 26 pg (25-35); MEAN CORPUSCULAR HGB CONC 32 g/dL (31-37); MEAN CORPUSCULAR VOLUME 81 fL (79-100); MONO # 0.5 x10^3/uL (0.0-1.1); MONO % 8 % (0-9); NEUT # 3.7 x10^3uL (1.8-7.7); NEUT % 58 % (31-73); PLATELET COUNT 128 x10^3/uL (140-400); RED BLOOD COUNT 4.91 x10^6/uL (4.30-5.70); RED CELL DISTRIBUTION WIDTH 14.7 % (11.5-14.5); WHITE BLOOD COUNT 6.3 x10^3/uL (4.0-11.0)
[2018-11-24 15:53] LABS: BILIRUBIN,URINE NEGATIVE (NEG); CLARITY,URINE CLEAR; COLOR,URINE YELLOW; NITRITE,URINE NEGATIVE (NEG); PH,URINE 5.5; PROTEIN,URINE NEGATIVE (NEG-TRACE); UROBILINOGEN,URINE 0.2 mg/dL (0.2 mg/dL)
[2018-11-24 15:57] LABS: CALCIUM 9.2 mg/dL (8.5-10.1); CREATININE 0.8 mg/dL (0.7-1.3); GFR 99.6; POTASSIUM 3.8 mmol/L (3.5-5.1)
[2018-11-24 16:01] LABS: ALBUMIN/GLOBULIN RATIO 1.1 (1.0-1.7); TOTAL BILIRUBIN 0.4 mg/dL (0.2-1.0); TOTAL PROTEIN 7.7 g/dL (6.4-8.2)
[2018-11-24 16:14] LABS: RBC,URINE 0 /HPF (0-2)
[2018-11-24 16:15] LABS: BACTERIA,URINE 0 /HPF (0-FEW); WBC,URINE OCC /HPF (0-4)
--- NOTE | 2018-11-24 17:22 | RAD ---
Limited abdomen ultrasound study Clinical indications: Right upper quadrant abdominal pain for 3 days. FINDINGS: The pancreas is obscured by overlying bowel gas. No focal aneurysmal dilatation of the abdominal aorta is evident. There is diffuse attenuation of sound throughout the liver which may be seen with fatty infiltration of the liver. This decreases the sensitivity of sonography to detect focal hepatic lesions. No focal hepatic mass is seen otherwise. The liver measures 16.9 cm in length which is normal. No gallstones are seen within the gallbladder. Biliary sludge is seen within the gallbladder. No gallbladder wall thickening or gallbladder distention is evident. The extra hepatic bile duct measures 4.0 mm in caliber which is normal. The length of the right kidney is 13.1 cm. No hydronephrosis or renal mass or perinephric fluid collection is seen on this side. IMPRESSION: Biliary sludge within the gallbladder. Fatty infiltration of the liver. Electronically signed by: John Kenney MD (11/24/2018 5:18 PM) [facility]
--- NOTE | 2018-11-24 17:24 | RAD ---
CHEST PA LATERAL History: right lower rib pain Comparison: None The heart size is not enlarged. No pneumothorax. No evidence of a pleural effusion. Note that the right lateral lung base is not entirely included. No consolidating infiltrate. Mild degenerative spurring of the spine. IMPRESSION: No evidence of consolidating infiltrate. Electronically signed by: Nikhil Winkler MD (11/24/2018 5:20 PM) [facility]
[2018-11-24] MEDS ORDERED: ONDA4TAB12 PO (18:08)
[2018-11-24 18:30] VITALS: BP 152/66
== END 2018-11-24 18:47 | disposition home or self-care (01) ==
LOC: ER 14:50
DX: R10.11 Right upper quadrant pain (principal); G89.29 Other chronic pain; R11.0 Nausea; E11.65 Type 2 diabetes mellitus with hyperglycemia; E78.00 Pure hypercholesterolemia, unspecified; I10 Essential (primary) hypertension; I25.10 Atherosclerotic heart disease of native coronary artery without angina pectoris; E03.9 Hypothyroidism, unspecified; Z95.5 Presence of coronary angioplasty implant and graft; Z88.1 Allergy status to other antibiotic agents; Z88.0 Allergy status to penicillin; Z88.8 Allergy status to other drugs, medicaments and biological substances
CPT/HCPCS: 36415; 71046; 76705; 80053; 81001; 83690; 85025; 96361; 96374; 96375; 96376; 99284; J2405; J3010; J7030

== ENCOUNTER → 2019-05-30 | Outpatient (CLI) | payer BC ==
[~2019-05-30] MED LIST changes: -AMLO1CAP12 PO; +AMLO1CAP13 PO; +ONDA4TAB12 PO
--- NOTE | 2019-05-30 11:50 | RAD ---
MR#: [id number] Date of Study: 05/30/2019 Ordering Physician: HUA HOWARD, Referring Physician: STORMY NIEVES Tech: RT Roberto (R) (N) APPROVED REPORT Test Type: Exercise Stress Nurse/Tech: Marylu Ibrahim R.N. Test Indications: cad Cardiac History: stents x 2 2014, htn, dm Medications: see ehr Medical History: see ehr Resting ECG: SR, inverted Ts noted in mult leads Resting Heart Rate: 60 bpm Resting Blood Pressure: 134/72mmHg Pretest Chest Pain: No chest pain Nurse/Tech Notes lungs cta, heart tones regular Consent: The procedure was explained to the patient in lay terms. Informed consent was witnessed. Yasmany eout was entered into [employer]. History and Stress Test performed by RT Roberto (R) (N) Stress Symptoms No chest pain or symptoms.Dyspnea POST EXERCISE Reason for Termination: Reached target heart rate Target HR: Yes Max HR: 149 bpm 92% of Maximum Predicted HR: 162 bpm Exercise duration: 11:52 min:sec, 4 Stage Exercise capacity: 13.4METs Max Blood Pressure: 171/73mmHg Blood Pressure response to exercise: Normal blood pressure response during stress. Heart Rate response to exercise: normal Chest Pain: No. Arrhythmia: No. ST Change: Yes. significan ST depression noted in mult leads, improved during recovery but did not re cover to baseline, no CP, dyspnea INTERPRETATION Stress EKG Conclusion: Baseline EKG showed sinus rhythm. ST depressions inferolateral leads at peak s tress suspicious for ischemia. No arrhythmias. Imaging Protocol IMAGE PROTOCOL: Rest Tc-99m/stress Tc-99m 1 day Rest: Stress: Viability: Radiopharm.Tc99m [id number] Sestamibi [id number] 33mCi Duration 13min. 13min. Img Date 05/30/2019 05/30/2019 Inj-Img [id number]. 60min. STRESS DATA End Diast. Vol.112.0mlLVEDV index BSA52.0ml End Syst. Vol.34.0mlLVESV index BSA16.0ml Myocardial Jwhh238.0gEject. Cimvdctf70.0% Stress Scores Regional WT1.00Summed WT20.00 Regional WM0.00Summed WM2.00 Study quality was good. Left Ventricular size was Normal at Rest and Stress. Lung uptake was . Left Ventricular ejection fraction is 70%. The rest and stress images show normal perfusion, normal contraction and thickening. LV Perf. Quant 17 Seg. SSS4.00 17 Seg. SRS0.00 17 Seg. SDS4.00 Stress Defect Extent (% LAD)0.00Rest Defect Extent (% LAD)0.00Rev. Defect Extent (% LAD)0.00 Stress Defect Extent (% LCX) 23.80Rest Defect Extent (% LCX)0.00Rev. Defect Extent (% LCX)23.80 Stress Defect Extent (% RCA)0.00Rest Defect Extent (% RCA)0.00Rev. Defect Extent (% RCA)0.00 Stress Defect Extent (% ELMER)4.10Rest Defect Extent (% ELMER)0.00Rev. Defect Extent (% ELMER)4.10 Conclusion 1. Treadmill exercise cardioisotope stress test did not show any evidence of ischemia or infarct. 2. Normal left ventricular systolic function with ejection fraction calculated at 70%. 3. Patient had good activity tolerance. Low risk for cardiac events. Signed by : Issac Moore Electronically Approved : 05/30/2019 11:49:43
== END | disposition home or self-care (01) ==
LOC: NM 07:48
PROVIDERS: ATTEND Internal Medicine Cardiovascular Disease
DX: I25.10 Atherosclerotic heart disease of native coronary artery without angina pectoris (principal); I10 Essential (primary) hypertension; E11.9 Type 2 diabetes mellitus without complications; Z88.8 Allergy status to other drugs, medicaments and biological substances; Z88.0 Allergy status to penicillin; Z79.01 Long term (current) use of anticoagulants; Z86.73 Personal history of transient ischemic attack (TIA), and cerebral infarction without residual deficits
CPT/HCPCS: 78452; 93017; A9500; 96376

== ENCOUNTER → 2019-11-04 | Outpatient (CLI) | payer BC, OTHER ==
[~2019-11-04] MED LIST changes: -GLIM4TAB2 PO; +GLIM4TAB8 PO; -OMEP20CA10 PO; +OMEP20CA16 PO
--- NOTE | 2019-11-07 19:57 | EEG ---
DATE OF SERVICE: 11/04/2019 DATE OF EE11/04/2019 EEG NUMBER: [id number]. OBJECTIVE: This is a 59-year-old male patient with history of memory loss. EEG is requested to evaluate cerebral activity and help rule out seizure. METHODS: Twenty electrodes were applied according to the international 10-20 electrode placement system. EKG monitoring, hyperventilation, intermittent photic stimulation, monopolar and bipolar montages are routinely utilized. The record was obtained on a digital system with video monitoring. FINDINGS: 1. Background: The patient was recorded in the awake, drowsy, and sleep states. The overall background amplitude is 5-15 microvolts. A posterior dominant rhythm of 8-9 Hz is observed. 2. Abnormalities: No specific epileptiform discharge or electrographic seizure is seen. No focal or diffuse slowing. 3. Activation: Hyperventilation was performed with good efforts and normal response. Intermittent photic stimulation was performed with photic driving. IMPRESSION: This EEG is a normal study for the awake, drowsy, and sleep states. No focal, lateralizing, specific epileptiform discharge, or electrographic seizure is seen. EFFIE ARRIAGA MD DR: VIVIANA/joann JOB#: [id number] / [id number] MARQUISE
== END | disposition home or self-care (01) ==
LOC: RT 15:19
PROVIDERS: ATTEND Psychiatry & Neurology Neurology
DX: R41.3 Other amnesia (principal)
CPT/HCPCS: 95816

== ENCOUNTER → 2019-12-19 | Outpatient (CLI) | payer OTHER ==
[~2019-12-19] MED LIST changes: +CLOP75TA PO; +GADOTERATE 5 MMOL/10ML VIAL. IVP ONE; +GLIP5TAB10 PO; +LIRA0.6P2 SQ; +PANT20TA2 PO; -VALA1000 PO; +VALA10008 PO
--- NOTE | 2019-12-19 11:21 | KCIC ---
EXAM: Brain MRI with and without contrast. HISTORY: Memory loss. Headache. Facial pain. TECHNIQUE: Multiplanar, multisequence magnetic resonance imaging of the brain was performed prior to and following the administration of intravenous contrast. COMPARISON: None. FINDINGS: There is no restricted diffusion to suggest acute or subacute infarction. There is no susceptibility effect to suggest hemorrhage. There is no mass effect or midline shift. There is no hydrocephalus. There are few tiny foci of signal change within the cerebral white matter. There is a suspected incidental developmental venous anomaly within the left temporal lobe and external capsule. There is a hypoplastic distal left vertebral artery, a normal variant. There are normal flow voids within the cerebral vessels. The orbits are unremarkable. There are right greater than left maxillary sinus mucous retention cysts. The mastoid air cells are unremarkable. No calvarial lesion is seen. IMPRESSION: 1. No acute intracranial finding. 2. Tiny foci of signal change within the cerebral white matter, most commonly due to chronic small vessel disease in patients of this age. Electronically signed by: Sandra Kearney MD (12/19/2019 11:18 AM) [id number]
== END ==
LOC: KCIC MRI 09:26
PROVIDERS: ATTEND Psychiatry & Neurology Neurology
DX: I73.89 Other specified peripheral vascular diseases (principal); R68.84 Jaw pain; R41.3 Other amnesia
CPT/HCPCS: 70553; 82565; A9575

== ENCOUNTER → 2019-12-23 | Outpatient (CLI) | payer OTHER ==
[~2019-12-23] MED LIST changes: -GADOTERATE 5 MMOL/10ML VIAL. IVP ONE
[2019-12-23 10:33] LABS: ALBUMIN 4.1 g/dL (3.4-5.0); ALBUMIN/GLOBULIN RATIO 1.2 (1.0-1.7); GFR 76.7; POTASSIUM 3.9 mmol/L (3.5-5.1); TOTAL BILIRUBIN 0.5 mg/dL (0.2-1.0); TOTAL PROTEIN 7.4 g/dL (6.4-8.2)
== END | disposition home or self-care (01) ==
LOC: LAB 09:31
PROVIDERS: ATTEND Psychiatry & Neurology Neurology
DX: R41.3 Other amnesia (principal)
CPT/HCPCS: 36415; 80053

== ENCOUNTER → 2021-11-08 | Outpatient (CLI) | payer BC ==
[~2021-11-08] MED LIST changes: +AMLO-187 PO; -AMLO10TA8 PO; -BENA20TA4 PO; +BENA20TA84 PO
--- NOTE | 2021-11-11 09:36 | RAD ---
MR#: [id number] Date of Study: 11/08/2021 Ordering Physician: HUA MUNOZ, Referring Physician: STORMY NIEVES Tech: RT Sam Mejia) (N) APPROVED REPORT Test Type: Exercise Stress Nurse/Tech: Yudy Booth RN Test Indications: CAD Cardiac History: Hypertension, Diabetes,2 stents 2017 Medications: See Electronic Medical Record Medical History: See Electronic Medical Record Resting ECG: SR with BBB Resting Heart Rate: 66 bpm Resting Blood Pressure: 140/72mmHg Pretest Chest Pain: No chest pain Nurse/Tech Notes S1,S2 and lungs clear to auscultation. Slight tightness in chest since having COVID in June. Consent: The procedure was explained to the patient in lay terms. Informed consent was witnessed. Yasmany eout was entered into [employer]. History and Stress Test performed by RT Santos (R) (N) Stress Symptoms No chest pain or symptoms. POST EXERCISE Reason for Termination: Reached target heart rate, Fatigue Target HR: Yes Max HR: 163 bpm 119% of Maximum Predicted HR: 136 bpm Exercise duration: 10:40 min:sec, 4 Stage Exercise capacity: 13.4METs Max Blood Pressure: 159/71mmHg Blood Pressure response to exercise: Normal blood pressure response during stress. Heart Rate response to exercise: WNL Chest Pain: No. Arrhythmia: No. ST Change: Yes. Slightly depressed ST segments during exercise (II,v3-v6) that resolved by end of [place] dy INTERPRETATION Stress EKG Conclusion: Mild lateral wall 1.[address] segment depression suggestive but not diagnostic o f ischemia. Imaging Protocol IMAGE PROTOCOL: Rest Tc-99m/stress Tc-99m 1 day Rest: Stress: Viability: Radiopharm.Tc99m EtcczdyyzFq48v Sestamibi Dose10.2mCi 32.2mCi Duration 15min. 15min. Img Date 11/08/2021 11/08/2021 Inj-Img [id number]. 60min. Rest Admin Site:IV - Right AntecubitalAdministrator:RT Sam Graham)(N) Stress Admin Site: IV - Right AntecubitalAdministrator: Sandra Peterson, RT (R)(N) STRESS DATA End Diast. Vol.78.0mlLVEDV index BSA37.0ml End Syst. Vol.19.0mlLVESV index BSA9.0ml Myocardial Lscq486.0gEject. Yadvrywa44.0% Stress Scores Regional WT1.00Summed WT9.00 Regional WM0.00Summed WM0.00 The rest and stress images show normal perfusion, normal contraction and thickening. LV Perf. Quant 17 Seg. SSS1.00 17 Seg. SRS3.00 17 Seg. SDS0.00 Stress Defect Extent (% LAD)0.00Rest Defect Extent (% LAD)0.00Rev. Defect Extent (% LAD)0.00 Stress Defect Extent (% LCX) 5.00Rest Defect Extent (% LCX)23.80Rev. Defect Extent (% LCX)0.00 Stress Defect Extent (% RCA)0.00Rest Defect Extent (% RCA)6.70Rev. Defect Extent (% RCA)0.00 Stress Defect Extent (% ELMER)0.90Rest Defect Extent (% ELMER)5.40Rev. Defect Extent (% ELMER)0.00 Other Information Quality:Average Risk Assessment: Low Risk Conclusion 1. Mildly abnormal EKG with lateral 1.5mm ST segment depression. 2. Normal perfusion at stress/rest. 3. Normal EF at > 60% 4. Low risk study. Signed by : Hua Munoz, Electronically Approved : 11/11/2021 09:35:47
== END ==
LOC: NM 08:15
PROVIDERS: ATTEND Internal Medicine Cardiovascular Disease
DX: R94.31 Abnormal electrocardiogram [ECG] [EKG] (principal); I25.10 Atherosclerotic heart disease of native coronary artery without angina pectoris
CPT/HCPCS: 78452; 93017; A9500